=== PATIENT | male | born 1995 | race Asian ===

== ENCOUNTER 2016-12-21 10:41 | Emergency (ER) | payer OTHER ==
[~2016-12-21] VITALS: Ht 172.7 cm; Wt 91.0 kg
[2016-12-21 10:47] VITALS: TEMP 36.9; Ht 172.7 cm; Wt 91.0 kg
[2016-12-21] MEDS ORDERED: IBUPROFEN 800 MG TAB PO STA (11:50)
[2016-12-21] MEDS ORDERED: ALBUTEROL HFA 8 GM INHALER INH ONE (12:00)
[2016-12-21] MEDS ORDERED: IBUP-1451 PO (12:03)
--- NOTE | 2016-12-21 12:06 | EMERGENCY ROOM VISIT NOTE ---
History Report prepared by Julia: Tracee Goncalves Under the Supervision of: Dr. Reed Martinez M.D. First contact with patient: 11:12 Chief Complaint: ANXIETY Stated Complaint: ONLY SLEEP 2-6 HRS PER NIGHT, ANXIETY WHEN ALONE History of Present Illness The patient is a 21 year old male who presents to the Emergency Room with complaints of persistent difficulty sleeping starting 4 weeks ago. The patient broke up with his girlfriend 4 weeks ago. Since then, he has been feeling anxious and unable to sleep. He is flying to [place] to drive his car back next week and states that he needs to rest before going. He would like sleeping pills so that he can get some rest. He had 3-5 minutes of thinking about hurting himself, but has not had any thoughts since then. He denies any thoughts of hurting others. He has had a cough for a while which he attributes to being the campus flu. He denies any history of asthma. He denies any fever, chills, congestion, diarrhea, constipation, or urinary symptoms. He has tried going to [employer] and was told to just give it some time. Source of History: patient Onset: 4 weeks ago Position: other (global) Quality: other (difficulty sleeping) Timing: other (persistent) Associated Symptoms: + cough, No fevers, No chills, No diarrhea, No urinary symptoms Note: Pt denies congestion, constipation. Review of Systems See HPI for pertinent positives and negatives. A total of ten systems were reviewed and were otherwise negative. Past Medical & Surgical Medical Problems: (1) No significant past medical history Family History No pertinent family history stated. Social History Smoking Status: Current Every Day Smoker Marital Status: single Occupation Status: [employer] student Current/Historical Medications Scheduled PRN Ibuprofen Tab (Motrin), 800 MG PO Q8H PRN for Pain Allergies Coded Allergies: No Known Allergies (Unverified , 12/21/16) Physical Exam Vital Signs Date Time Temp Pulse Resp B/P (MAP) Pulse Ox O2 Delivery O2 Flow Rate FiO2 12/21/16 12:25 67 20 132/79 99 12/21/16 10:47 36.9 70 16 139/84 96 Room Air Physical Exam GENERAL: Awake, alert, anxious-appearing, in no distress HENT: Normocephalic, atraumatic. Oropharynx unremarkable. Dry mucous membranes. Boggy nasal turbinates. EYES: Normal conjunctiva. Sclera non-icteric. NECK: Supple. No nuchal rigidity. FROM. No JVD. RESPIRATORY: Clear to auscultation. CARDIAC: Regular rate, normal rhythm. Extremities warm and well perfused. Pulses equal. ABDOMEN: Soft, non-distended. No tenderness to palpation. No rebound or guarding. No masses. RECTAL: Deferred. MUSCULOSKELETAL: Chest examination reveals no tenderness. The back is symmetrical on inspection without obvious abnormality. There is no CVA tenderness to palpation. No joint edema. LOWER EXTREMITIES: Calves are equal size bilaterally and non-tender. No edema. No discoloration. NEURO: Normal sensorium. No sensory or motor deficits noted. SKIN: No rash or jaundice noted. Medical Decision & Procedures Medications Administered Medications (Trade) Dose Ordered Sig/Ca Route Start Time Stop Time Status Last Admin Dose Admin Ibuprofen (Motrin Tab) 800 mg NOW STAT PO 12/21/16 11:50 12/21/16 11:52 DC 12/21/16 12:01 800 MG Albuterol (Ventolin Hfa Inhaler) 2 puffs NOW ONCE INH 12/21/16 12:00 12/21/16 12:01 DC 12/21/16 12:01 2 PUFFS ED Course 1129: The patient was evaluated in room C9. A complete history and physical exam was performed. I discussed results and discharge instructions: he verbalized understanding and agreement. The patient is ready for discharge. 1150: Ibuprofen 800 mg PO. 1200: Albuterol 2 puffs INH. Medical Decision I reviewed the patient's past medical history, medications, and the nursing notes as described above. Differential diagnosis: anxiety, URI, pharyngitis. Patient is a 21-year-old gentleman who presents to the emergency department with anxiety and depression after a recent breakup with his girlfriend a month ago per history of present illness. Reports fleeting moment of having his eye 2 weeks ago but has not recurred since. Denies SI/HI today. Reports mild cough and congestion for the past week as well as insomnia seeking help to obtain sleeping pill. Reports having seen [facility] on campus and they have reassured the patient that they would like to continue to monitor for improvement of symptoms before beginning medications. Exam the patient was noted to have mild congestion. His chest with the patient that we do not prescribe new psychiatric medications from the emergency department, however we would gladly help him with his cold symptoms. Patient was agreeable to Albuterol inhaler for his persistent cough and will take ibuprofen and NyQuil as well for his symptoms,which in turn may help his insomnia as well. Findings and plan for follow-up d/w patient. Patient agreeable and d/c'd per discharge instructions. Medication Reconcilliation Current Medication List: was personally reviewed by me Blood Pressure Screening Patient's blood pressure: Elevated blood pressure Blood pressure disposition: Elevated BP felt to be situational Impression Primary Impression: Acute anxiety Additional Impression: Cough Scribe Attestation The scribe's documentation has been prepared under my direction and personally reviewed by me in its entirety. I confirm that the note above accurately reflects all work, treatment, procedures, and medical decision making performed by me. Departure Information Dispostion Home / Self-Care Prescriptions Ibuprofen Tab (MOTRIN) 800 Mg Tab 800 MG PO Q8H Y for Pain for 10 Days, #30 TAB Prov: Reed Martinez M.D. 12/21/16 Referrals No Doctor, Assigned (PCP) Patient Instructions ED Upper Resp Infec No Abx Tx, My [facility] Additional Instructions Please follow up with your primary care physician in the next 1-3 days for re- evaluation. Otherwise, your exam did not show signs of an emergent condition at this time. Take ibuprofen for pain and fever as needed. Use albuterol inhaler every 6 hours for cough as needed. For additional decongestive effect, anti-cough you may use NyQuil, which also will have an effect to make you drowsy and could also help you sleep. Drink plenty of fluids to ensure hydration. Continue to see as you have been doing for your recent anxiety over your breakup. Return to the emergency department for worsening symptoms as described in the accompanying instructions. Problem Qualifiers
[2016-12-21 12:25] VITALS: BP 132/79; PULSE 67; O2SAT 99
== END 2016-12-21 12:29 | disposition home or self-care (01) ==
LOC: C.EDB 10:44 → C.EDC 12:29
DX: F41.9 Anxiety disorder, unspecified (principal); R05 Cough; G47.00 Insomnia, unspecified

== ENCOUNTER 2017-06-05 23:00 | Emergency (ER) | payer OTHER ==
[~2017-06-05] VITALS: Ht 172.7 cm; Wt 97.1 kg
[2017-06-05 23:02] VITALS: TEMP 37; Ht 172.7 cm; Wt 97.1 kg
[2017-06-05] MEDS ORDERED: RABIES VACCINE (IMOVAX) HUMAN DIPL CELL 2.5 INTER.UNIT/ML SYR IM. ONE (23:15)
[2017-06-05] MEDS ORDERED: RABIES IMMUNE GLOBULIN (HUMAN) 150 INTER.UNIT/ML 2 ML VIAL IM. ONE (23:15)
[2017-06-05] MEDS ORDERED: AMOXICIL/CLAVU 875MG HOME PACK PO ONE (23:15)
[2017-06-05] MEDS ORDERED: AMOX875T PO (23:19)
--- NOTE | 2017-06-05 23:23 | EMERGENCY ROOM VISIT NOTE ---
ED Visit Note First contact with patient: 23:04 CHIEF COMPLAINT: Animal bite HISTORY OF PRESENT ILLNESS: This 22 yo patient presents to the emergency department after they sustained a dog bite to the left second finger and right foot. The patient states he was playing with his dog when he accidentally bit him. The patient reports that the animal's immunizations are not UTD. The patient complains of mild 2/10 pain at the site of the injury. Pain is worse with movement. Tetanus status is up to date. He states his dog has not gotten any rabies series he just obtained the systolic from [place]. REVIEW OF SYSTEMS: A 6 system review of systems was completed with positives and pertinent negatives listed in the HPI. ALLERGIES: none MEDICATIONS: none PMH: none PHYSICAL EXAM: Vital Signs reviewed, see Nurse's notes, vital signs hypertensive. GENERAL: pleasant male, awake, alert, well appearing, no acute distress. Non toxic in appearance. MUSCULOSKELETAL: Examination of the left hand reveals a abrasion type of wound. There is minimal swelling on inspection. Palpation of the hand and fingers reveals no tenderness. No significant crepitus or warmth noted. No joint space , tendon, or vascular involvement. Distal pulses intact. Left foot with an abrasion type of wound with minimal swelling with no pain on palpation. No crepitus. No warmth. No joint space, tendon or vascular involvement. Pedal pulses +2 equal and present bilaterally. No lymphangitis. SKIN: No signs of infection. NEURO: No sensory or motor deficits noted over all dermatomes and myotomes tested. EMERGENCY DEPARTMENT COURSE AND DECISION MAKING: I examined the patient. The patient presented with an isolated bite wound as described as above. By the history, there is minimal concern for rabies exposure. No signs of infection on examination. Patient is requesting rabies vaccine. ER Treatment: Department of Health paperwork completed. Wound care done by nursing. Antibiotic prophylaxis is indicated. The area was cleansed with Betadine and sterile saline and dressed with bacitracin and a bandage. Patient was started on the rabies series and immunoglobulin. Discharge instructions reviewed. Discharged in stable condition. DIAGNOSIS: Dog bite to the left hand second finger and right foot, initial evaluation DISCHARGED INSTRUCTIONS: as below Allergies Coded Allergies: No Known Allergies (Unverified , 12/21/16) Vital Signs Date Time Temp Pulse Resp B/P (MAP) Pulse Ox O2 Delivery O2 Flow Rate FiO2 06/05/17 23:02 37.0 85 20 145/84 96 Room Air Departure Information Referrals No Doctor, Assigned (PCP) Patient Instructions [facility]
[2017-06-06 00:55] VITALS: BP 125/67; PULSE 97; O2SAT 95
== END 2017-06-06 00:59 | disposition home or self-care (01) ==
LOC: C.EDB 23:01 → C.EDC 06-06 00:59
DX: S61.251A Open bite of left index finger without damage to nail, initial encounter (principal); S91.351A Open bite, right foot, initial encounter; Z20.3 Contact with and (suspected) exposure to rabies; Z29.14 Encounter for prophylactic rabies immune globulin; Z23 Encounter for immunization; W54.0XXA Bitten by dog, initial encounter; Y99.8 Other external cause status

== ENCOUNTER 2017-06-08 13:29 | Emergency (ER) | payer OTHER ==
[~2017-06-08 13:29] MED LIST: AMOX875T PO
[2017-06-08 13:31] VITALS: TEMP 36.7
[2017-06-08] MEDS ORDERED: RABIES VACCINE (IMOVAX) HUMAN DIPL CELL 2.5 INTER.UNIT/ML SYR IM. ONE (13:45)
[2017-06-08 14:25] VITALS: BP 133/89; PULSE 85; O2SAT 94
--- NOTE | 2017-06-08 16:43 | EMERGENCY ROOM VISIT NOTE ---
ED Visit Note First contact with patient: 13:34 Chief Complaint: Rabies Immunization Return Visit. History of Present Illness: Mr. Srivastava is a 22 year-old male who ambulates into the ED requesting his 2 rabies immunization after he was bit by his own dog. He reports he had no reactions after his last immunization shot. He reports he is feeling well to day. Additionally he feels his bites on the right hand and foot are healing well. Review of Symptoms: As noted above. Past Medical History, Current Medications, Allergies and Social History: As noted on previous visit. Physical Exam: VITAL SIGNS - Date Time Temp Pulse Resp B/P (MAP) Pulse Ox O2 Delivery O2 Flow Rate FiO2 06/08/17 14:25 85 16 133/89 94 06/08/17 13:31 36.7 112 20 143/85 97 Room Air GENERAL - Patient is a 22-year-old male in no acute distress, non-toxic appearing, afebrile and hemodynamic stable. NEUROLOGICAL: Awake, alert and oriented X3. Answering questions appropriately and following commands. No focal motor or sensory defects. SKIN - Warm, dry and pink. Dog bites on the right hand and foot were examined and there is no signs of local inflammation or infection. ED Course: Patient is assessed as noted above. Patient's medication list was reviewed. Previous ED visit note was reviewed. Patient was give 2.5 interunits of rabies vaccination IM. Patient was reassessed and had no additional symptoms. Additionally patient does report that he was contacted by the department of health and they offered to quarantine his dog for 10 days. They reports that the dog was asymptomatic in 10 days he could be released and he did not have to follow-up for his additional immunizations. I did confirm that until the patient's that would be his choice but I did inform him that if he was exposed to rabies in the future he would have to receive the whole rabies immunization series again. He did question me on how the insurance would cover that and I informed him I did not know. Patient was educated about today's finding and instructed on their treatment plan; he verbalized understanding and agreement with this plan. Clinical Impression: Rabies Prophylaxis. Disposition: Patient discharged to home in stable condition; prior to dischage patient subjectively reported he was pain-free. Plan: Patient was encouraged to follow his previous discharge instructions on wound care and scheduling of additional vaccinations as he felt needed. Patient was encouraged to return the ED for any adverse side effects, signs of infection or any new/concerning symptoms.
== END 2017-06-08 14:25 | disposition home or self-care (01) ==
LOC: C.EDB 13:30 → C.EDD 14:25
DX: Z23 Encounter for immunization (principal); Z20.3 Contact with and (suspected) exposure to rabies